=== PATIENT | male | born 1945 | race African-American/Black ===

== ENCOUNTER 2017-10-24 09:29 | Observation (INO) | payer OTHER ==
[~2017-10-24] VITALS: Ht 195.6 cm; Wt 99.6 kg
[~2017-10-24 09:29] MED LIST: BYSTOLIC10 MG PO
[2017-10-24 10:03] LABS: HEMATOCRIT 40.4 % (38.0-50.0); HEMOGLOBIN 13.8 G/DL (12.5-16.6); MCH 32.5 PG (29.0-34.0); MCHC 34.2 G/DL (30.0-36.0); MCV 95.1 FL (86-99); PLATELET COUNT 203 K/uL (156-360); RBC DIS.WIDTH-CV 12.2 % (11.8-14.6); RBC DIS.WIDTH-SD 42.3 % (39-53); RED BLOOD COUNT 4.25 M/uL (4.00-5.50); WHITE BLOOD COUNT 4.1 K/uL (4.1-10.2)
[2017-10-24 10:14] LABS: CHLORIDE 107 mEq/L (99-109); POTASSIUM 4.1 mEq/L (3.7-5.4); SODIUM 139 mEq/L (136-147)
[2017-10-24 10:15] LABS: GLUCOSE 131 mg/dL (70-99)
[2017-10-24 10:19] LABS: CREATININE 1.3 mg/dL (0.6-1.3); GFR ESTIMATE (CALCULATED) > 59 mL/min/ (58.99-99999)
[2017-10-24 10:20] LABS: UREA NITROGEN (BUN) 15 mg/dL (9-23)
[2017-10-24 11:57] LABS: TROP-I INTERPRETATION NEGATIVE; TROPONIN-I < 0.01 ng/mL (0.0-0.30)
[2017-10-24 14:52] VITALS: BP 128/85; BP 135/80
[2017-10-24] MEDS ORDERED: PERCOCET 10/1 TABLET PO (14:59)
[2017-10-24] MEDS ORDERED: NEURONTIN600 MG PO (14:59)
[2017-10-24] MEDS ORDERED: VIAGRA100 MG PO (15:00)
[2017-10-24] MEDS ORDERED: PRINZIDE 20-121 EACH PO (15:00)
[2017-10-24] MEDS ORDERED: FLOMAX0.4 MG PO (15:00)
[2017-10-24 18:23] LABS: TROP-I INTERPRETATION NEGATIVE; TROPONIN-I 0.01 ng/mL (0.0-0.30)
[2017-10-24] MEDS ORDERED: FINASTERIDE5 MG PO (18:36)
[2017-10-24 20:00] VITALS: BP 113/77; BP 125/89; BP 139/85
[2017-10-25 00:16] VITALS: BP 121/87
[2017-10-25 00:53] LABS: TROP-I INTERPRETATION NEGATIVE; TROPONIN-I 0.01 ng/mL (0.0-0.30)
[2017-10-25 04:01] VITALS: BP 111/72
[2017-10-25 05:30] LABS: HEMATOCRIT 37.4 % (38.0-50.0); HEMOGLOBIN 12.2 G/DL (12.5-16.6); MCH 31.1 PG (29.0-34.0); MCHC 32.6 G/DL (30.0-36.0); MCV 95.4 FL (86-99); PLATELET COUNT 190 K/uL (156-360); RED BLOOD COUNT 3.92 M/uL (4.00-5.50)
[2017-10-25 06:21] LABS: ALBUMIN 3.4 G/DL (3.2-4.8); ALKALINE PHOSPHATASE 54 IU/L (3-129); ALT (GPT) 11 IU/L (3-49); AST (GOT) 14 IU/L (2-34); CHLORIDE 108 MEQ/L (99-109); CREATININE 1.3 MG/DL (0.6-1.3); DIRECT BILIRUBIN 0.1 mg/dL (0.0-0.3); GFR ESTIMATE (CALCULATED) > 59 mL/min/ (58.99-99999); GLUCOSE 101 mg/dL (70-99); POTASSIUM 3.9 MEQ/L (3.7-5.4); SODIUM 142 MEQ/L (136-147); TOTAL PROTEIN 6.2 G/DL (6.4-8.3); UREA NITROGEN (BUN) 15 mg/dL (9-23)
[2017-10-25 06:25] LABS: TOTAL BILIRUBIN 0.4 MG/DL (0.0-1.0)
[2017-10-25 07:08] LABS: ABS NEUTROPHIL COUNT 0.8; ANISOCYTOSIS 1+; ATYPICAL LYMPHOCYTE 1.7 %; BASOPHILS 0.9 %; EOSINOPHIL ABS CT 0.1; EOSINOPHILS 2.6 % (0-5.0); LYMPHOCYTES 67.8 % (15.0-45.0); MACROCYTES 1+; MONOCYTES 6.1 % (0-9.0); PLAT.SUFFICIENCY ADEQUATE; SEG.NEUTROPHILS 20.9 % (46.0-76.0); SMUDGE CELLS 20.9
[2017-10-25] MEDS ORDERED: LISINOPRIL-HCT1 EACH PO (07:39)
[2017-10-25 08:39] VITALS: BP 139/93
[2017-10-25 08:40] VITALS: BP 115/56
[2017-10-25 08:42] VITALS: BP 120/92
== END 2017-10-25 12:23 | disposition home or self-care (01) ==
LOC: EME 09:29 → ENRESERV 12:46 → EDOF 12:46 → ENRESERV 13:18 → 4SOUTH 14:37
PROVIDERS: Internal Medicine
PROC: B246ZZZ Ultrasonography of Right and Left Heart (ICD-10-PCS; principal; 2017-10-25)
DX: I95.9 Hypotension, unspecified (principal); T46.5X5A Adverse effect of other antihypertensive drugs, initial encounter; I10 Essential (primary) hypertension; S49.92XA Unspecified injury of left shoulder and upper arm, initial encounter; F17.210 Nicotine dependence, cigarettes, uncomplicated
CPT/HCPCS: 70450; 71046; 73030; 80048; 80076; 84484; 85025; 85027; 93005; 93306; 99281; 99285; G0378; J1644